=== PATIENT | female | born 1990 | race Caucasian/White ===

== ENCOUNTER 2016-11-17 10:00 | Inpatient (IN) | payer SELFPAY ==
[~2016-11-17] VITALS: Ht 160 cm; Wt 81.6 kg
[2016-11-17] MEDS ORDERED: IV RINGERS,LACTATED 1000ML 1,000 ML IV SCH (10:41)
[2016-11-17] MEDS ORDERED: FENTANYL PF 100 MCG/2 ML VIAL. IV PRN (10:45)
[2016-11-17] MEDS ORDERED: LIDOCAINE 1% PF 30 ML VIAL. INJ PRN (10:45)
[2016-11-17] MEDS ORDERED: BUTORPHANOL 2 MG VIAL. IV PRN ×2 (10:45)
[2016-11-17] MEDS ORDERED: 0.9 % SODIUM CHLORIDE 10 ML DISP.SYRIN. IV PRN ×2 (10:45→13:45)
[2016-11-17] MEDS ORDERED: OXYTOCIN 30 UNIT/500 ML PREMIX 500 ML IV PRN ×2 (10:45→13:45)
[2016-11-17 10:55] VITALS: BP 113/88
[2016-11-17] MEDS ORDERED: PENICILLIN G K 5,000,000 UNIT in IV NORMAL SALINE 100ML 100 ML IV ONE (11:00)
[2016-11-17 11:05] LABS: BILIRUBIN,URINE NEGATIVE (NEG); GLUCOSE,URINE NEGATIVE (NEG); NITRITE,URINE NEGATIVE (NEG); PH,URINE 6.5; PROTEIN,URINE NEGATIVE (NEG-TRACE); UROBILINOGEN,URINE 0.2 mg/dL (0.2 mg/dL)
[2016-11-17 11:06] LABS: BASO # 0.1 x10^3/uL (0.0-0.2); BASO % 1 % (0-3); EOS % 1 % (0-3); HEMOGLOBIN 11.1 g/dL (12.0-15.5); LYMPH # 2.4 x10^3/uL (1.0-4.8); LYMPH % 20 % (24-48); MEAN CORPUSCULAR HEMOGLOBIN 26 pg (25-35); MEAN CORPUSCULAR HGB CONC 33 g/dL (31-37); MEAN CORPUSCULAR VOLUME 80 fL (79-100); MONO % 7 % (0-9); NEUT % 71 % (31-73); PLATELET COUNT 173 x10^3/uL (140-400); RED BLOOD COUNT 4.23 x10^6/uL (3.50-5.40); RED CELL DISTRIBUTION WIDTH 15.5 % (11.5-14.5); WHITE BLOOD COUNT 12.1 x10^3/uL (4.0-11.0)
[2016-11-17 11:13] LABS: BARBITURATES NEG (NEG); BENZODIAZEPINES NEG (NEG); CANNABINOIDS NEG (NEG); COCAINE NEG (NEG); ETHANOL, URINE NEG (NEG); METHADONE NEG (NEG); OPIATES NEG (NEG); PHENCYCLIDINE NEG (NEG)
[2016-11-17] MEDS ORDERED: OXYTOCIN in NORMAL SALINE PREMIX 30 UNIT/500 ML BAG. IV ONE (11:30)
[2016-11-17] MEDS ORDERED: ROPIVacaine 0.2% IN 0.9%NACL PF 40 MG/20 ML DISP.SYRIN. ONE ×2 (11:30→11:48)
[2016-11-17] MEDS ORDERED: L&D EPIDURAL CASSETTE 100 ML EP ONE (11:49)
--- NOTE | 2016-11-17 13:13 | PDOC1 ---
OB - History Hx of Present Care: Good Care (per patient. Pt[facility] from [place] [facility] Ultrasounds: Other (see above comments.) Obstetrical Complications: None Medical Complications: None Past Family/Social History * Past Medical, Surgical, Family and Obstetric Histories reviewed from chart. Blood Type: Unknown Rubella: Unknown RPR/VDRL: Unknown GBS Status: Unknown HBsAG: Unknown OB - Chief Complaint & HPI Date of Admission: Date of Admission: Nov 17, 2016 at 10:00 Chief Complaint/History : 3 Para: 2 EGA: 40 Reason for admission: active labor Admission Nurse Assessment Rev: Yes Problems: OB - Admission Exam Physical Exam Vitals: VS - Last 72 Hours, by Label Date Time Temp Pulse Resp B/P Pulse Ox O2 Delivery O2 Flow Rate FiO2 11/17/16 11:49 20 11/17/16 11:08 20 11/17/16 10:55 98.3 58 20 113/88 98.3 HEENT: Normal Heart: Regular Rate, Normal S1, Normal S2 Lungs: Clear Abdomen: Gravid, Non tender, Soft Extremities: Edema Reflexes: Normal Cervical Dilatation: 5cm Effacement: 75% Station: -2 Membranes: Intact Heart Rate: Normal Accelerations: Accelerations Present Decelerations: No decelerations Contractions on Admission: < 5 Minutes Apart Intensity: Firm Text A: 40 wks IUP Active labor GBS unknown P: ADmit for labor management and start Pen G for GBS prophylaxis. JAYLIN GARCÍA Jr, MD Nov 17, 2016 13:13
--- NOTE | 2016-11-17 13:42 | PDOC ---
VAGINAL DELIVERY DATE DATE: 11/17/16 TIME: 13:40 : 3 Para: 3 EGA: 40 VAGINAL DELIVERY: VTX VACCUM ASSISTED: No PLACENTA: Spontaneous 8/9 SEX: Male WEIGHT Weight [3765 gm ] Nuchal Cord: No Amniotic Fluid: Thick Meconium PAIN: Epidural EPISIOTOMY: No EXTENSION: No EBL 300 ml COMPLICATIONS none CONDITION pt. stable Signs of Intrauterine Infectio: None Shoulder Dystocia: No Problems: JAYLIN GARCÍA Jr, MD Nov 17, 2016 13:42
[2016-11-17] MEDS ORDERED: MAG HYDROX/AL HYDROX/SIMETH 30 ML ORAL.SUSP PO PRN (13:45)
[2016-11-17] MEDS ORDERED: ZOLPIDEM 5 MG TABLET. PO PRN (13:45)
[2016-11-17] MEDS ORDERED: IBUPROFEN 800 MG TABLET. PO PRN (13:45)
[2016-11-17] MEDS ORDERED: BENZOCAINE 20% TOPICAL AEROSOL SPRAY 57GM CAN. TP PRN (13:45)
[2016-11-17] MEDS ORDERED: ACETAMINOPHEN 325 MG TABLET. PO PRN (13:45)
[2016-11-17] MEDS ORDERED: SIMETHICONE 80 MG TAB.CHEW PO PRN (13:45)
[2016-11-17] MEDS ORDERED: MAGNESIUM HYDROXIDE 2,400 MG/30 ML ORAL.SUSP. PO PRN (13:45)
[2016-11-17] MEDS ORDERED: MMR per PROTOCOL. MC PRN (13:45)
[2016-11-17] MEDS ORDERED: DOCUSATE SODIUM 100 MG CAPSULE PO PRN (13:45)
[2016-11-17] MEDS ORDERED: PHENYLEPH/MINERAL OIL/PETROLAT RECTAL OINTMENT 28GM TUBE. RC PRN (13:45)
[2016-11-17] MEDS ORDERED: HYDROCORTISONE 1% TOPICAL OINTMENT 30GM TUBE. TP PRN (13:45)
[2016-11-17] MEDS ORDERED: DIPHENHYDRAMINE HCL 25 MG CAPSULE PO PRN (13:45)
[2016-11-17] MEDS ORDERED: PENICILLIN G K 2,500,000 UNIT in IV NORMAL SALINE 50ML 50 ML IV SCH (15:00)
[2016-11-17] MEDS: IBUPROFEN 800 MG TABLET. PO PRN (16:18)
[2016-11-17 16:30] VITALS: BP 114/84
[2016-11-17 22:00] VITALS: BP 102/68
[2016-11-17] MEDS: OXYCODONE/APAP 5/325 TABLET. PO PRN (22:14)
[2016-11-18] MEDS: IBUPROFEN 800 MG TABLET. PO PRN ×3 (01:33→22:54)
[2016-11-18 01:34] VITALS: BP 102/67
[2016-11-18 05:05] VITALS: BP 99/66
[2016-11-18 05:21] LABS: BASO # 0.1 x10^3/uL (0.0-0.2); BASO % 1 % (0-3); EOS % 1 % (0-3); HEMATOCRIT 28.5 % (36.0-47.0); HEMOGLOBIN 9.5 g/dL (12.0-15.5); LYMPH # 3.1 x10^3/uL (1.0-4.8); LYMPH % 25 % (24-48); MEAN CORPUSCULAR HEMOGLOBIN 27 pg (25-35); MEAN CORPUSCULAR HGB CONC 33 g/dL (31-37); MEAN CORPUSCULAR VOLUME 81 fL (79-100); MONO % 8 % (0-9); NEUT % 65 % (31-73); PLATELET COUNT 139 x10^3/uL (140-400); RED BLOOD COUNT 3.51 x10^6/uL (3.50-5.40); RED CELL DISTRIBUTION WIDTH 15.4 % (11.5-14.5); WHITE BLOOD COUNT 12.4 x10^3/uL (4.0-11.0)
--- NOTE | 2016-11-18 08:16 | PDOC ---
OB Progress Note Date of Service 11/18/16 Time of Evaluation 0815 Notes PT. feeling well. Pain controlled. Lochia minimal. Bottle feeding. Lab Laboratory Tests Test 11/17/16 10:50 11/18/16 05:07 White Blood Count 12.1x10^3/uL (4.0-11.0) 12.4x10^3/uL (4.0-11.0) Red Blood Count 4.23x10^6/uL (3.50-5.40) 3.51x10^6/uL (3.50-5.40) Hemoglobin 11.1g/dL (12.0-15.5) 9.5g/dL (12.0-15.5) Hematocrit 34.0% (36.0-47.0) 28.5% (36.0-47.0) Mean Corpuscular Volume 80fL (79-100) 81fL (79-100) Mean Corpuscular Hemoglobin 26pg (25-35) 27pg (25-35) Mean Corpuscular Hemoglobin Concent 33g/dL (31-37) 33g/dL (31-37) Red Cell Distribution Width 15.5% (11.5-14.5) 15.4% (11.5-14.5) Platelet Count 173x10^3/uL (140-400) 139x10^3/uL (140-400) Neutrophils (%) (Auto) 71% (31-73) 65% (31-73) Lymphocytes (%) (Auto) 20% (24-48) 25% (24-48) Monocytes (%) (Auto) 7% (0-9) 8% (0-9) Eosinophils (%) (Auto) 1% (0-3) 1% (0-3) Basophils (%) (Auto) 1% (0-3) 1% (0-3) Neutrophils # (Auto) 8.6x10^3uL (1.8-7.7) 8.1x10^3uL (1.8-7.7) Lymphocytes # (Auto) 2.4x10^3/uL (1.0-4.8) 3.1x10^3/uL (1.0-4.8) Monocytes # (Auto) 0.9x10^3/uL (0.0-1.1) 1.0x10^3/uL (0.0-1.1) Eosinophils # (Auto) 0.1x10^3/uL (0.0-0.7) 0.1x10^3/uL (0.0-0.7) Basophils # (Auto) 0.1x10^3/uL (0.0-0.2) 0.1x10^3/uL (0.0-0.2) Urine Collection Type Unknown Urine Color Yellow Urine Clarity Clear Urine pH 6.5 Urine Specific [place] 1.010 Urine Protein Negativemg/dL (NEG-TRACE) Urine Glucose (UA) Negativemg/dL (NEG) Urine Ketones (Stick) Negativemg/dL (NEG) Urine Blood Negative (NEG) Urine Nitrite Negative (NEG) Urine Bilirubin Negative (NEG) Urine Urobilinogen Dipstick 0.2mg/dL (0.2 mg/dL) Urine Leukocyte Esterase Trace (NEG) Urine Opiates Screen Neg (NEG) Urine Methadone Screen Neg (NEG) Urine Barbiturates Neg (NEG) Urine Phencyclidine Screen Neg (NEG) Urine Amphetamine/Methamphetamine Neg (NEG) Urine Benzodiazepines Screen Neg (NEG) Urine Cocaine Screen Neg (NEG) Urine Cannabinoids Screen Neg (NEG) Urine Ethyl Alcohol Neg (NEG) RPR Titer Additional Testing Non reactive (Non Reactive) Hepatitis B Surface Antigen Negative (Negative) Laboratory Tests Test 11/17/16 10:50 11/18/16 05:07 White Blood Count 12.1x10^3/uL (4.0-11.0) 12.4x10^3/uL (4.0-11.0) Red Blood Count 4.23x10^6/uL (3.50-5.40) 3.51x10^6/uL (3.50-5.40) Hemoglobin 11.1g/dL (12.0-15.5) 9.5g/dL (12.0-15.5) Hematocrit 34.0% (36.0-47.0) 28.5% (36.0-47.0) Mean Corpuscular Volume 80fL (79-100) 81fL (79-100) Mean Corpuscular Hemoglobin 26pg (25-35) 27pg (25-35) Mean Corpuscular Hemoglobin Concent 33g/dL (31-37) 33g/dL (31-37) Red Cell Distribution Width 15.5% (11.5-14.5) 15.4% (11.5-14.5) Platelet Count 173x10^3/uL (140-400) 139x10^3/uL (140-400) Neutrophils (%) (Auto) 71% (31-73) 65% (31-73) Lymphocytes (%) (Auto) 20% (24-48) 25% (24-48) Monocytes (%) (Auto) 7% (0-9) 8% (0-9) Eosinophils (%) (Auto) 1% (0-3) 1% (0-3) Basophils (%) (Auto) 1% (0-3) 1% (0-3) Neutrophils # (Auto) 8.6x10^3uL (1.8-7.7) 8.1x10^3uL (1.8-7.7) Lymphocytes # (Auto) 2.4x10^3/uL (1.0-4.8) 3.1x10^3/uL (1.0-4.8) Monocytes # (Auto) 0.9x10^3/uL (0.0-1.1) 1.0x10^3/uL (0.0-1.1) Eosinophils # (Auto) 0.1x10^3/uL (0.0-0.7) 0.1x10^3/uL (0.0-0.7) Basophils # (Auto) 0.1x10^3/uL (0.0-0.2) 0.1x10^3/uL (0.0-0.2) Urine Collection Type Unknown Urine Color Yellow Urine Clarity Clear Urine pH 6.5 Urine Specific [place] 1.010 Urine Protein Negativemg/dL (NEG-TRACE) Urine Glucose (UA) Negativemg/dL (NEG) Urine Ketones (Stick) Negativemg/dL (NEG) Urine Blood Negative (NEG) Urine Nitrite Negative (NEG) Urine Bilirubin Negative (NEG) Urine Urobilinogen Dipstick 0.2mg/dL (0.2 mg/dL) Urine Leukocyte Esterase Trace (NEG) Urine Opiates Screen Neg (NEG) Urine Methadone Screen Neg (NEG) Urine Barbiturates Neg (NEG) Urine Phencyclidine Screen Neg (NEG) Urine Amphetamine/Methamphetamine Neg (NEG) Urine Benzodiazepines Screen Neg (NEG) Urine Cocaine Screen Neg (NEG) Urine Cannabinoids Screen Neg (NEG) Urine Ethyl Alcohol Neg (NEG) RPR Titer Additional Testing Non reactive (Non Reactive) Hepatitis B Surface Antigen Negative (Negative) Medications Current Medications Sodium Chloride 3 ml 3 ml QSHIFT PRN IV AFTER MEDS AND BLOOD DRAWS; Start 11/17 at 10:45 Lactated Ringer's (Iv Lactated Ringers) 1,000 ml @ 125 mls/hr Q8H IV Last administered on 11/17/16 11:08; Start 11/17/16 at 10:41; Stop 11/17/16 at 23:02 ; Status DC Butorphanol Tartrate (Stadol) 1 mg PRN Q1HR PRN IV mild to moderate labor pain ; Start 11/17/16 at 10:45 Butorphanol Tartrate (Stadol) 2 mg PRN Q1HR PRN IV Severe labor pain; Start at 10:45 Fentanyl Citrate (Fentanyl 2ml Vial) 100 mcg PRN Q1HR PRN IV Severe pain Last administered on 11/17/16 11:08; Start 11/17/16 at 10:45; Stop 11/17/16 at 23:04 ; Status DC Lidocaine HCl 30 ml 30 ml 1X PRN PRN INJ SEE COMMENTS; Start 11/17/16 at 10:45 ; Stop 11/19/16 at 10:44 Oxytocin/Sodium Chloride (Oxytocin Premix Infusion) 500 ml @ 0 mls/hr CONT PRN PRN IV Post delivery bleeding; Start 11/17/16 at 10:45 Ibuprofen 800 mg 800 mg PRN Q8HRS PRN PO PAIN Last administered on 11/18/16 01 :33; Start 11/17/16 at 11:15 Penicillin G Potassium 1249815 unit/Sodium Chloride 100 ml @ 100 mls/hr 1X ONCE IV Last administered on 11/17/16 11:46; Start 11/17/16 at 11:00; Stop at 11:59; Status DC Penicillin G Potassium/Sodium Chloride (Pfizerpen/Iv Sodium Chloride 0.9% 50ml) 50 ml @ 100 mls/hr Q4H IV ; Start 11/17/16 at 15:00; Stop 11/17/16 at 23:03; Status DC Ropivacaine 40 mg 40 mg STK-MED ONCE .ROUTE ; Start 11/17/16 at 11:48; Stop at 11:49; Status DC Ropivacaine/ Fentanyl/NS (Ykwlnyur-Hrgdg-XX 3 Mcg-0.1%) 100 ml @ As Directed STK-MED ONCE EP Last administered on 11/17/16t 11:49; Start 11/17/16 at 11:49; Stop 11/17/16 at 11:50; Status DC Sodium Chloride 10 ml 10 ml QSHIFT PRN IV AFTER MEDS AND BLOOD DRAWS; Start at 13:45 Oxytocin/Sodium Chloride (Oxytocin Premix Infusion) 500 ml @ 62.5 mls/hr CONT PRN IV SEE I/O RECORD; Start 11/17/16 at 13:45; Stop 11/17/16 at 21:44; Status DC Acetaminophen (Tylenol) 650 mg PRN Q6HRS PRN PO MILD PAIN / TEMP; Start at 13:45 Ibuprofen (Motrin) 800 mg PRN Q8HRS PRN PO INFLAMMATION/PAIN PREVENTION; Start 11/17/16 at 13:45 Docusate Sodium (Colace) 100 mg PRN BID PRN PO CONSTIPATION; Start 11/17/16 at 13:45 Magnesium Hydroxide (Milk Of Magnesia) 2,400 mg PRN DAILY PRN PO CONSTIPATION; Start 11/17/16 at 13:45 Al Hydroxide/Mg Hydroxide (Mylanta Plus Xs) 30 ml PRN Q4HRS PRN PO HEARTBURN / GAS; Start 11/17/16 at 13:45 Simethicone (Gas-X) 80 mg PRN AFTMEALHC PRN PO GAS / BLOATING; Start 11/17/16 at 13:45 Diphenhydramine HCl (Benadryl) 25 mg PRN Q6HRS PRN PO ITCHING; Start 11/17/16 at 13:45 Benzocaine (Americaine) 1 spray PRN QID PRN TP TOPICAL PAIN Last administered on 11/17/16 16:19; Start 11/17/16 at 13:45 Phenyleph/Shark Oil/Min Oil/Petrol (Preparation H) 1 francy PRN QID PRN RC RECTAL PAIN; Start 11/17/16 at 13:45 Hydrocortisone (Cortaid) 1 francy PRN QID PRN TP PERINEAL PAIN; Start 11/17/16 at 13:45 Ferrous Sulfate (Feosol) 325 mg BIDWMEALS PO ; Start 11/18/16 at 08:00 Zolpidem Tartrate (Ambien) 5 mg PRN QHS PRN PO INSOMNIA, MAY REPEAT X1; Start 11/17/16 at 13:45 Info (Do NOT chart on this placeholder) 1 ea 1X PRN PRN MC SEE COMMENTS; Start 11/17/16 at 13:45 Info (Do NOT chart on this placeholder) 1 ea 1X PRN PRN MC SEE COMMENTS; Start 11/17/16 at 13:45 Oxycodone/ Acetaminophen (Percocet 5/325) 2 tab PRN Q4HRS PRN PO MODERATE PAIN , SEVERE PAIN Last administered on 11/17/16t 22:14; Start 11/17/16 at 13:45 Diphtheria/ Tetanus/Acell Pertussis (Boostrix) 0.5 ml ONCE ONCE VAX IM ; Start 11/18/16 at 09:00; Stop 11/18/16 at 09:01 Oxytocin/Sodium Chloride (Oxytocin Premix Infusion) 30 unit STK-MED ONCE IV ; Start 11/17/16 at 11:30; Stop 11/18/16 at 08:12; Status DC Ropivacaine 40 mg STK-MED ONCE .ROUTE ; Start 11/17/16 at 11:30; Stop 11/18/16 at 08:12; Status DC Exam Abd: soft,non tender, fundus firm Assessment PPD#1 s/p Plan of Care: Continue current Tx, Mgmt JAYLIN GARCÍA Jr, MD Nov 18, 2016 08:16
[2016-11-18] MEDS ORDERED: DIPHTH,PERTUSS(ACELL),TET TOX 0.5 ML DISP.SYRIN. VAX IM ONE (09:00)
[2016-11-18] MEDS: FERROUS SULFATE 325 MG TABLET PO SCH ×2 (09:03→20:21)
[2016-11-18 11:12] VITALS: BP 101/66
[2016-11-18] MEDS: OXYCODONE/APAP 5/325 TABLET. PO PRN ×2 (15:42→22:54)
[2016-11-18 17:36] VITALS: BP 100/74
[2016-11-18 22:45] VITALS: BP 111/70
[2016-11-19 05:30] VITALS: BP 98/62
--- NOTE | 2016-11-19 07:45 | PDOC ---
OB Progress Note Date of Service 11/19/16 Time of Evaluation 0745 Notes Pt. feeling well. Pain controlled. Bottle feeding. Lab Laboratory Tests Test 11/17/16 10:50 11/18/16 05:07 White Blood Count 12.1x10^3/uL (4.0-11.0) 12.4x10^3/uL (4.0-11.0) Red Blood Count 4.23x10^6/uL (3.50-5.40) 3.51x10^6/uL (3.50-5.40) Hemoglobin 11.1g/dL (12.0-15.5) 9.5g/dL (12.0-15.5) Hematocrit 34.0% (36.0-47.0) 28.5% (36.0-47.0) Mean Corpuscular Volume 80fL (79-100) 81fL (79-100) Mean Corpuscular Hemoglobin 26pg (25-35) 27pg (25-35) Mean Corpuscular Hemoglobin Concent 33g/dL (31-37) 33g/dL (31-37) Red Cell Distribution Width 15.5% (11.5-14.5) 15.4% (11.5-14.5) Platelet Count 173x10^3/uL (140-400) 139x10^3/uL (140-400) Neutrophils (%) (Auto) 71% (31-73) 65% (31-73) Lymphocytes (%) (Auto) 20% (24-48) 25% (24-48) Monocytes (%) (Auto) 7% (0-9) 8% (0-9) Eosinophils (%) (Auto) 1% (0-3) 1% (0-3) Basophils (%) (Auto) 1% (0-3) 1% (0-3) Neutrophils # (Auto) 8.6x10^3uL (1.8-7.7) 8.1x10^3uL (1.8-7.7) Lymphocytes # (Auto) 2.4x10^3/uL (1.0-4.8) 3.1x10^3/uL (1.0-4.8) Monocytes # (Auto) 0.9x10^3/uL (0.0-1.1) 1.0x10^3/uL (0.0-1.1) Eosinophils # (Auto) 0.1x10^3/uL (0.0-0.7) 0.1x10^3/uL (0.0-0.7) Basophils # (Auto) 0.1x10^3/uL (0.0-0.2) 0.1x10^3/uL (0.0-0.2) Urine Collection Type Unknown Urine Color Yellow Urine Clarity Clear Urine pH 6.5 Urine Specific [place] 1.010 Urine Protein Negativemg/dL (NEG-TRACE) Urine Glucose (UA) Negativemg/dL (NEG) Urine Ketones (Stick) Negativemg/dL (NEG) Urine Blood Negative (NEG) Urine Nitrite Negative (NEG) Urine Bilirubin Negative (NEG) Urine Urobilinogen Dipstick 0.2mg/dL (0.2 mg/dL) Urine Leukocyte Esterase Trace (NEG) Urine Opiates Screen Neg (NEG) Urine Methadone Screen Neg (NEG) Urine Barbiturates Neg (NEG) Urine Phencyclidine Screen Neg (NEG) Urine Amphetamine/Methamphetamine Neg (NEG) Urine Benzodiazepines Screen Neg (NEG) Urine Cocaine Screen Neg (NEG) Urine Cannabinoids Screen Neg (NEG) Urine Ethyl Alcohol Neg (NEG) RPR Titer Additional Testing Non reactive (Non Reactive) Hepatitis B Surface Antigen Negative (Negative) Medications Current Medications Sodium Chloride 3 ml 3 ml QSHIFT PRN IV AFTER MEDS AND BLOOD DRAWS; Start 11/17 at 10:45 Lactated Ringer's (Iv Lactated Ringers) 1,000 ml @ 125 mls/hr Q8H IV Last administered on 11/17/16 11:08; Start 11/17/16 at 10:41; Stop 11/17/16 at 23:02 ; Status DC Butorphanol Tartrate (Stadol) 1 mg PRN Q1HR PRN IV mild to moderate labor pain ; Start 11/17/16 at 10:45 Butorphanol Tartrate (Stadol) 2 mg PRN Q1HR PRN IV Severe labor pain; Start at 10:45 Fentanyl Citrate (Fentanyl 2ml Vial) 100 mcg PRN Q1HR PRN IV Severe pain Last administered on 11/17/16 11:08; Start 11/17/16 at 10:45; Stop 11/17/16 at 23:04 ; Status DC Lidocaine HCl 30 ml 30 ml 1X PRN PRN INJ SEE COMMENTS; Start 11/17/16 at 10:45 ; Stop 11/19/16 at 10:44 Oxytocin/Sodium Chloride (Oxytocin Premix Infusion) 500 ml @ 0 mls/hr CONT PRN PRN IV Post delivery bleeding; Start 11/17/16 at 10:45 Ibuprofen 800 mg 800 mg PRN Q8HRS PRN PO PAIN Last administered on 11/18/16 22 :54; Start 11/17/16 at 11:15 Penicillin G Potassium [id number] unit/Sodium Chloride 100 ml @ 100 mls/hr 1X ONCE IV Last administered on 11/17/16 11:46; Start 11/17/16 at 11:00; Stop at 11:59; Status DC Penicillin G Potassium/Sodium Chloride (Pfizerpen/Iv Sodium Chloride 0.9% 50ml) 50 ml @ 100 mls/hr Q4H IV ; Start 11/17/16 at 15:00; Stop 11/17/16 at 23:03; Status DC Ropivacaine 40 mg 40 mg STK-MED ONCE .ROUTE ; Start 11/17/16 at 11:48; Stop at 11:49; Status DC Ropivacaine/ Fentanyl/NS (Onlmdjfm-Dtwhg-RA 3 Mcg-0.1%) 100 ml @ As Directed STK-MED ONCE EP Last administered on 11/17/16 11:49; Start 11/17/16 at 11:49; Stop 11/17/16 at 11:50; Status DC Sodium Chloride 10 ml 10 ml QSHIFT PRN IV AFTER MEDS AND BLOOD DRAWS; Start at 13:45 Oxytocin/Sodium Chloride (Oxytocin Premix Infusion) 500 ml @ 62.5 mls/hr CONT PRN IV SEE I/O RECORD; Start 11/17/16 at 13:45; Stop 11/17/16 at 21:44; Status DC Acetaminophen (Tylenol) 650 mg PRN Q6HRS PRN PO MILD PAIN / TEMP; Start at 13:45 Ibuprofen (Motrin) 800 mg PRN Q8HRS PRN PO INFLAMMATION/PAIN PREVENTION; Start 11/17/16 at 13:45 Docusate Sodium (Colace) 100 mg PRN BID PRN PO CONSTIPATION; Start 11/17/16 at 13:45 Magnesium Hydroxide (Milk Of Magnesia) 2,400 mg PRN DAILY PRN PO CONSTIPATION; Start 11/17/16 at 13:45 Al Hydroxide/Mg Hydroxide (Mylanta Plus Xs) 30 ml PRN Q4HRS PRN PO HEARTBURN / GAS; Start 11/17/16 at 13:45 Simethicone (Gas-X) 80 mg PRN AFTMEALHC PRN PO GAS / BLOATING; Start 11/17/16 at 13:45 Diphenhydramine HCl (Benadryl) 25 mg PRN Q6HRS PRN PO ITCHING; Start 11/17/16 at 13:45 Benzocaine (Americaine) 1 spray PRN QID PRN TP TOPICAL PAIN Last administered on 11/17/16 16:19; Start 11/17/16 at 13:45 Phenyleph/Shark Oil/Min Oil/Petrol (Preparation H) 1 francy PRN QID PRN RC RECTAL PAIN; Start 11/17/16 at 13:45 Hydrocortisone (Cortaid) 1 francy PRN QID PRN TP PERINEAL PAIN; Start 11/17/16 at 13:45 Ferrous Sulfate (Feosol) 325 mg BIDWMEALS PO Last administered on 11/18/16 20: 21; Start 11/18/16 at 08:00 Zolpidem Tartrate (Ambien) 5 mg PRN QHS PRN PO INSOMNIA, MAY REPEAT X1; Start 11/17/16 at 13:45 Info (Do NOT chart on this placeholder) 1 ea 1X PRN PRN MC SEE COMMENTS; Start 11/17/16 at 13:45 Info (Do NOT chart on this placeholder) 1 ea 1X PRN PRN MC SEE COMMENTS; Start 11/17/16 at 13:45 Oxycodone/ Acetaminophen (Percocet 5/325) 2 tab PRN Q4HRS PRN PO MODERATE PAIN , SEVERE PAIN Last administered on 11/18/16 22:54; Start 11/17/16 at 13:45 Diphtheria/ Tetanus/Acell Pertussis (Boostrix) 0.5 ml ONCE ONCE VAX IM Last administered on 11/18/16 09:05; Start 11/18/16 at 09:00; Stop 11/18/16 at 09:01 ; Status DC Oxytocin/Sodium Chloride (Oxytocin Premix Infusion) 30 unit STK-MED ONCE IV ; Start 11/17/16 at 11:30; Stop 11/18/16 at 08:12; Status DC Ropivacaine 40 mg STK-MED ONCE .ROUTE ; Start 11/17/16 at 11:30; Stop 11/18/16 at 08:12; Status DC Exam Abd: soft, non tender, fundus firm Assessment PPD#2 s/p Plan of Care: See new orders (D/c home.) JAYLIN GARCÍA Jr, MD Nov 19, 2016 07:45
--- NOTE | 2016-11-19 07:46 | DISCH ---
DISCHARGE INSTRUCTIONS Condition on Discharge Condition on Discharge: Stable Activity After Discharge Activity Instructions for Disc: Activity as tolerated Lifting Instructions after Dis: No heavy lifting Driving Instructions after Dis: Do not drive today Diet after Discharge Diet after Discharge: Regular Contacting the DRCollin after DC Call your doctor for: Concerns you may have Follow-Up Follow up with: Dr. Mosqueda in 6 weeks. JAYLIN MOSQUEDA Jr, MD Nov 19, 2016 07:46
[2016-11-19] MEDS ORDERED: IBUP-1060 PO (07:47)
[2016-11-19 10:27] VITALS: BP 106/60
[2016-11-19] MEDS: FERROUS SULFATE 325 MG TABLET PO SCH (11:07)
[2016-11-19] MEDS: IBUPROFEN 800 MG TABLET. PO PRN (11:07)
[2016-11-19 14:30] VITALS: BP 114/67
== END 2016-11-19 14:55 | disposition home or self-care (01) | DRG 775 ==
LOC: 3 SO LND 10:00 → OBSVTOIN 10:50 → 3 NORTH 16:01
PROVIDERS: ADMIT Obstetrics & Gynecology; ATTEND Obstetrics & Gynecology
PROC: 10E0XZZ Delivery of Products of Conception, External Approach (ICD-10-PCS; principal; 2016-11-17)
PROC: 3E0S3CZ (ICD-10-PCS; 2016-11-17)
PROC: 00HU33Z Insertion of Infusion Device into Spinal Canal, Percutaneous Approach (ICD-10-PCS; 2016-11-17)
PROC: 3E0134Z Introduction of Serum, Toxoid and Vaccine into Subcutaneous Tissue, Percutaneous Approach (ICD-10-PCS; 2016-11-19)
DX: O77.0 Labor and delivery complicated by meconium in amniotic fluid (principal); Z37.0 Single live birth; Z3A.40 40 weeks gestation of pregnancy
CPT/HCPCS: 36415; 81003; 85027; 86593; 86762; 86850; 86900; 86901; 87340; 87341; 90715; G0379; G0481; J2540; J2590; J2795; J3010; J7120

== ENCOUNTER → 2017-10-16 | Outpatient (CLI) | payer OTHER ==
[~2017-10-16] MED LIST: IBUP-1060 PO
--- NOTE | 2017-10-16 13:02 | KCIC ---
OB > 14 WKS W/TV History: Size date discrepancy Comparison: None. Findings: Multiple sonographic images of the uterus are submitted. There is a single intrauterine fetus, transverse presentation. Cervix measured 5.9 cm. Subjectively adequate volume is within normal limits. There is detectable cardiac activity 158 bpm. There is posterior placenta. The cisterna magna measures 0.3 cm. 2 upper and lower extremities were visualized. There is no obvious abnormality demonstrated of the visualized spine. 2 kidneys were visualized. bladder is faintly visualized, not well distended. There is a midline cord insertion, apparently three-vessel cord. Four-chamber view of heart is limited apparently due to motion, grossly visualized. Biometry data are as follows: Biparietal diameter 3.81 cm corresponding with 17 weeks 4 days, 33rd percentile Head circumference 14.71 cm corresponding 17 weeks 6 days, 34th percentile Abdominal circumference 12.42 cm corresponds with 18 weeks 0 days, 49 percentile Femur length 2.54 cm corresponds with 17 weeks 5 days, 33rd percentile Estimated weight 214 g +/- 32 g. Adjusted ultrasound age 17 weeks 6 days with estimated delivery date of 03/20/2018. LMP age is 18 weeks 0 days with estimated delivery date of 03/19/2018. Right maternal ovary measured 2.7 x 2.4 x 1.7 cm. Left ovary is not visualized. Impression: 1. Of the visualized anatomy, no significant abnormality is demonstrated. There is transverse position of the single intrauterine fetus. Adjusted ultrasound age is 17 weeks 6 days with estimated delivery date of 03/20/2018. Electronically signed by: Julian Sanabria MD (10/16/2017 12:59 PM) [id number]
== END | disposition home or self-care (01) ==
LOC: KCIC US 10:48
PROVIDERS: ATTEND Obstetrics & Gynecology
DX: Z36.89 Encounter for other specified antenatal screening (principal); Z3A.17 17 weeks gestation of pregnancy
CPT/HCPCS: 76805; 76817

== ENCOUNTER 2018-04-29 05:50 | Day surgery (SDC) | payer OTHER ==
[2018-04-29] MEDS: IV RINGERS,LACTATED 1000ML 1,000 ML IV (06:24)
[2018-04-29] MEDS ORDERED: LIDOCAINE 1% PF 2 ML VIAL. ID (07:00)
[2018-04-29] MEDS ORDERED: MORPHINE SULFATE 2 MG/ML DISP.SYRIN. IV (07:00)
[2018-04-29] MEDS ORDERED: ONDANSETRON PF 4 MG/2 ML VIAL. IV (07:00)
[2018-04-29] MEDS ORDERED: DEXAMETHASONE SOD PHOS 20 MG/5 ML VIAL. (07:26)
[2018-04-29] MEDS ORDERED: PROPOFOL 20 ML IV (07:26)
[2018-04-29] MEDS ORDERED: FAMOTIDINE 20 MG/2 ML VIAL (07:26)
[2018-04-29] MEDS ORDERED: LIDOCAINE 2% PF Vial for OR 5 ML VIAL. (07:26)
[2018-04-29] MEDS ORDERED: KETOROLAC 30 MG/ML INJ FOR OR. INJ (07:26)
[2018-04-29] MEDS ORDERED: ONDANSETRON PF 4 MG/2 ML VIAL. (07:26)
[2018-04-29] MEDS ORDERED: MIDAZOLAM HCL/PF 2 MG/2 ML VIAL. (07:28)
[2018-04-29] MEDS ORDERED: fentaNYL PF VIAL 100 MCG/2 ML VIAL ×2 (07:28→09:58)
[2018-04-29] MEDS ORDERED: ROCURONIUM 50 MG/5 ML VIAL. (07:28)
[2018-04-29] MEDS: BUPIVACAINE-EPI 0.25%-1:200000 50 ML VIAL. (08:11)
[2018-04-29] MEDS ORDERED: SEVOFLURANE 16 TO 30 MINUTES. IH (08:21)
[2018-04-29] MEDS: fentaNYL PF VIAL 100 MCG/2 ML VIAL IV ×3 (08:42→09:39)
[2018-04-29] MEDS: PROCHLORPERAZINE 10 MG/2 ML VIAL. IV (08:56)
[2018-04-29] MEDS ORDERED: oxyCODONE/APAP 5/325 1 TAB TABLET PO (09:15)
[2018-04-29] MEDS: oxyCODONE/APAP 5/325 1 TAB TABLET PO (09:54)
[2018-04-29] MEDS ORDERED: PROCHLORPERAZINE 10 MG/2 ML VIAL. (09:58)
[2018-04-29 10:47] LABS: NEG OBC UR NEG; POS OBC UR POS; U PREG PATIENT NEGATIVE (NEG)
== END 2018-04-29 10:30 | disposition home or self-care (01) ==
LOC: SURG 05:50
DX: Z30.2 Encounter for sterilization (principal); Z72.89 Other problems related to lifestyle; Z79.899 Other long term (current) drug therapy
CPT/HCPCS: 58671; 81025; A7015; J0780; J1100; J1885; J2001; J2250; J2405; J2704; J3010; S0028

== ENCOUNTER 2018-04-29 19:20 | Emergency (ER) | payer OTHER ==
[2018-04-29 19:55] LABS: BILIRUBIN,URINE NEGATIVE (NEG); CLARITY,URINE CLEAR; COLOR,URINE YELLOW; GLUCOSE,URINE NEGATIVE (NEG); NITRITE,URINE NEGATIVE (NEG); PH,URINE 6.5; PROTEIN,URINE NEGATIVE (NEG-TRACE)
[2018-04-29 20:04] LABS: BACTERIA,URINE 0 /HPF (0-FEW); RBC,URINE >40 /HPF (0-2); SQUAMOUS EPITHELIAL CELL,UR FEW /LPF; WBC,URINE OCC /HPF (0-4)
== END 2018-04-29 20:33 | disposition home or self-care (01) ==
LOC: ER 19:20
DX: M54.5 Low back pain (principal); M25.561 Pain in right knee; M25.551 Pain in right hip; Z98.51 Tubal ligation status
CPT/HCPCS: 81001; 99283